=== PATIENT | female | born 1945 | race Caucasian/White ===

== ENCOUNTER → 2016-12-04 | Outpatient (CLI) | payer MEDICARE ==
[~2016-12-04] MED LIST: AMBI10TA PO; ASCO500 PO; CYMB30CA PO; DARV PO; FISH300C2 PO; LORA-475 PO; LOVA1TAB47 PO; MAGN400T PO; MELA3TAB14 PO; MELA5CAP2 PO; MOBI7.5S PO; OYST500T77 PO; PREM0.622 PO; PRIL10CA PO; ROPI1TAB72 PO; TAB-TAB PO; VITATAB25 PO; [UNRECOGNIZED DRUG - CODE] PO
[2016-12-04 12:28] LABS: AUTOMATED NEUTROPHIL # 3.3 TH/MM3 (1.8-7.7); BASOPHIL % 0.6 % (0.0-2.0); EOSINOPHIL # 0.1 TH/MM3 (0-0.4); EOSINOPHIL % 1.3 % (0.0-4.0); HEMATOCRIT 38.2 % (35.0-46.0); HEMO FLAGS DIFF FINAL; LYMPH % 37.8 % (9.0-44.0); LYMPHOCYTE # 2.4 TH/MM3 (1.0-4.8); MEAN CELL VOLUME 99.2 FL (80.0-100.0); MEAN CORPUSCULAR HEMOGLOBIN 32.5 PG (27.0-34.0); MEAN CORPUSCULAR HGB CONC 32.8 % (32.0-36.0); MONO % 8.6 % (0.0-8.0); NEUT % 51.7 % (16.0-70.0); PLATELET COUNT 283 TH/MM3 (150-450); RED BLOOD COUNT 3.85 MIL/MM3 (4.00-5.30); RED CELL DISTRIBUTION WIDTH 13.1 % (11.6-17.2); WHITE BLOOD COUNT 6.3 TH/MM3 (4.0-11.0)
[2016-12-04 12:30] LABS: INTERNATIONAL NORMALIZED RATIO 0.9 RATIO; PROTHROMBIN TIME - PATIENT 10.2 SEC (9.8-11.6)
[2016-12-04 13:02] LABS: ALKALINE PHOSPHATASE 90 U/L (45-117); ALT (GPT) 27 U/L (10-53); ANION GAP 10 MEQ/L (5-15); AST (GOT) 20 U/L (15-37); BICARBONATE 25.2 MEQ/L (21.0-32.0); BLOOD UREA NITROGEN 25 MG/DL (7-18); CHLORIDE 107 MEQ/L (98-107); GLOMERULAR FILTRATION RATE 53 ML/MIN (>89); GLUCOSE,FASTING 109 MG/DL (74-99); HDL CHOLESTEROL 62.4 MG/DL (40.0-60.0); LDL CHOLESTEROL 143 MG/DL (0-99); POTASSIUM 4.5 MEQ/L (3.5-5.1); SODIUM (NA) 142 MEQ/L (136-145); TOTAL BILIRUBIN ADULT 0.4 MG/DL (0.2-1.0)
== END ==
LOC: ELAB 09:56
PROVIDERS: ATTEND Family Medicine
DX: R23.8 Other skin changes (principal); E78.5 Hyperlipidemia, unspecified; M79.1 Myalgia; K21.0 Gastro-esophageal reflux disease with esophagitis; R94.6 Abnormal results of thyroid function studies; Z98.890 Other specified postprocedural states; Z98.891 History of uterine scar from previous surgery
CPT/HCPCS: 36415; 80053; 80061; 82248; 84443; 85025; 85610

== ENCOUNTER → 2016-12-15 | Outpatient (CLI) | payer MEDICARE ==
[2016-12-17 19:53] LABS: THYROGLOB ABS LESS THAN 1 IU/mL (< OR = 1)
== END ==
LOC: ELAB 11:47
PROVIDERS: ATTEND Family Medicine
DX: E03.9 Hypothyroidism, unspecified (principal)
CPT/HCPCS: 36415; 86376; 86800

== ENCOUNTER → 2017-01-16 | Outpatient (CLI) | payer MEDICARE ==
[2017-01-16 12:35] LABS: FREE T4 1.06 NG/DL (0.76-1.46)
== END ==
LOC: ELAB 10:21
PROVIDERS: ATTEND Family Medicine
DX: E03.9 Hypothyroidism, unspecified (principal); R79.89 Other specified abnormal findings of blood chemistry
CPT/HCPCS: 36415; 84439; 84443

== ENCOUNTER → 2017-04-23 | Outpatient (CLI) | payer MEDICARE ==
[2017-04-23 12:08] LABS: HEMATOCRIT 36.8 % (35.0-46.0); MEAN CELL VOLUME 99.6 FL (80.0-100.0); MEAN CORPUSCULAR HEMOGLOBIN 33.2 PG (27.0-34.0); MEAN CORPUSCULAR HGB CONC 33.3 % (32.0-36.0); PLATELET COUNT 287 TH/MM3 (150-450); RED BLOOD COUNT 3.69 MIL/MM3 (4.00-5.30); RED CELL DISTRIBUTION WIDTH 13.3 % (11.6-17.2); REVIEW FLAG FINAL
[2017-04-23 12:10] LABS: ALT (GPT) 33 U/L (10-53); ANION GAP 6 MEQ/L (5-15); AST (GOT) 20 U/L (15-37); BICARBONATE 26.6 MEQ/L (21.0-32.0); BLOOD UREA NITROGEN 22 MG/DL (7-18); CHLORIDE 108 MEQ/L (98-107); GLOMERULAR FILTRATION RATE 48 ML/MIN (>89); GLUCOSE,FASTING 105 MG/DL (74-99); POTASSIUM 4.6 MEQ/L (3.5-5.1); SODIUM (NA) 141 MEQ/L (136-145)
[2017-04-23 12:20] LABS: ALKALINE PHOSPHATASE 99 U/L (45-117); LDL CHOLESTEROL 158 MG/DL (0-99); TOTAL BILIRUBIN ADULT 0.3 MG/DL (0.2-1.0)
== END ==
LOC: ELAB 08:54
PROVIDERS: ATTEND Family Medicine
DX: E78.5 Hyperlipidemia, unspecified (principal); M79.1 Myalgia; K21.0 Gastro-esophageal reflux disease with esophagitis; R94.6 Abnormal results of thyroid function studies; Z98.890 Other specified postprocedural states
CPT/HCPCS: 36415; 80053; 80061; 84443; 85027

== ENCOUNTER → 2017-05-27 | Outpatient (CLI) | payer MEDICARE | LOC: ELAB 07:37 | PROVIDERS: ATTEND Family Medicine | DX: R94.6 Abnormal results of thyroid function studies (principal); R19.5 Other fecal abnormalities | CPT/HCPCS: 36415; 82272; 84443; 87493 ==

== ENCOUNTER → 2017-08-04 | Outpatient (CLI) | payer MEDICARE | LOC: ELAB 09:51 | PROVIDERS: ATTEND Family Medicine | DX: R79.89 Other specified abnormal findings of blood chemistry (principal); R94.6 Abnormal results of thyroid function studies | CPT/HCPCS: 36415; 84443 ==

== ENCOUNTER → 2017-09-01 | Outpatient (CLI) | payer MEDICARE ==
[2017-09-01 12:11] LABS: ALBUMIN 3.3 GM/DL (3.4-5.0); AST (GOT) 11 U/L (15-37); BICARBONATE 24.2 MEQ/L (21.0-32.0); BLOOD UREA NITROGEN 27 MG/DL (7-18); CALCIUM 8.6 MG/DL (8.5-10.1); CHLORIDE 111 MEQ/L (98-107); CREATININE 1.18 MG/DL (0.50-1.00); GLOMERULAR FILTRATION RATE 45 ML/MIN (>89); GLUCOSE,FASTING 109 MG/DL (74-99); SODIUM (NA) 142 MEQ/L (136-145)
[2017-09-01 12:13] LABS: ALT (GPT) 26 U/L (10-53); CHOLESTEROL 194 MG/DL (120-200); TRIGLYCERIDES 158 MG/DL (42-150)
[2017-09-01 12:22] LABS: ALKALINE PHOSPHATASE 94 U/L (45-117); CHOLESTEROL/ HDL RATIO 3.18 RATIO; LDL CHOLESTEROL 101 MG/DL (0-99); TOTAL BILIRUBIN ADULT 0.2 MG/DL (0.2-1.0); TOTAL PROTEIN 6.3 GM/DL (6.4-8.2)
[2017-09-03 12:16] LABS: HEMATOCRIT 35.8 % (35.0-46.0); HEMOGLOBIN 12.2 GM/DL (11.6-15.3); MEAN CELL VOLUME 99.3 FL (80.0-100.0); MEAN CORPUSCULAR HEMOGLOBIN 33.7 PG (27.0-34.0); PLATELET COUNT 260 TH/MM3 (150-450); RED BLOOD COUNT 3.61 MIL/MM3 (4.00-5.30); RED CELL DISTRIBUTION WIDTH 13.3 % (11.6-17.2); WHITE BLOOD COUNT 8.9 TH/MM3 (4.0-11.0)
== END ==
LOC: ELAB 08:29
PROVIDERS: ATTEND Family Medicine
DX: E78.5 Hyperlipidemia, unspecified (principal); E03.9 Hypothyroidism, unspecified; M79.1 Myalgia; K21.0 Gastro-esophageal reflux disease with esophagitis; R94.6 Abnormal results of thyroid function studies
CPT/HCPCS: 36415; 80053; 80061; 84443

== ENCOUNTER → 2017-12-30 | Outpatient (CLI) | payer MEDICARE ==
[2017-12-30 12:07] LABS: HEMATOCRIT 37.1 % (35.0-46.0); HEMOGLOBIN 12.6 GM/DL (11.6-15.3); MEAN CELL VOLUME 98.1 FL (80.0-100.0); MEAN CORPUSCULAR HEMOGLOBIN 33.2 PG (27.0-34.0); MEAN CORPUSCULAR HGB CONC 33.8 % (32.0-36.0); MEAN PLATELET VOLUME 8.2 FL (7.0-11.0); PLATELET COUNT 309 TH/MM3 (150-450); RED BLOOD COUNT 3.78 MIL/MM3 (4.00-5.30); RED CELL DISTRIBUTION WIDTH 12.5 % (11.6-17.2); WHITE BLOOD COUNT 7.4 TH/MM3 (4.0-11.0)
[2017-12-30 12:13] LABS: ALBUMIN 3.7 GM/DL (3.4-5.0); ALT (GPT) 27 U/L (10-53); AST (GOT) 20 U/L (15-37); BICARBONATE 26.5 MEQ/L (21.0-32.0); BLOOD UREA NITROGEN 21 MG/DL (7-18); CALCIUM 8.6 MG/DL (8.5-10.1); CHLORIDE 106 MEQ/L (98-107); CHOLESTEROL 213 MG/DL (120-200); CREATININE 1.05 MG/DL (0.50-1.00); GLOMERULAR FILTRATION RATE 52 ML/MIN (>89); GLUCOSE,FASTING 98 MG/DL (74-99); SODIUM (NA) 142 MEQ/L (136-145)
[2017-12-30 12:22] LABS: ALKALINE PHOSPHATASE 94 U/L (45-117); CHOLESTEROL/ HDL RATIO 3.65 RATIO; HDL CHOLESTEROL 58.2 MG/DL (40.0-60.0); LDL CHOLESTEROL 109 MG/DL (0-99); TOTAL BILIRUBIN ADULT 0.2 MG/DL (0.2-1.0); TOTAL PROTEIN 6.9 GM/DL (6.4-8.2); TRIGLYCERIDES 230 MG/DL (42-150)
== END ==
LOC: ELAB 09:10
PROVIDERS: ATTEND Family Medicine
DX: E78.5 Hyperlipidemia, unspecified (principal); E03.9 Hypothyroidism, unspecified; M79.1 Myalgia; K21.0 Gastro-esophageal reflux disease with esophagitis
CPT/HCPCS: 36415; 80053; 80061; 84443; 85027